=== PATIENT | male | born 1990 | race Caucasian/White ===

== ENCOUNTER 2018-12-02 13:59 | Inpatient (IN) | payer BC ==
[~2018-12-02] VITALS: Ht 180.3 cm; Wt 69.4 kg
--- NOTE | ~2018-12-02 | EKG ---
[place], [place] ELECTROCARDIOGRAM REPORT NAME: KRISTIE SHAY UNIT #: [id number] ROOM: 507 DOCTOR: GO DRAFT REPORT BIRTHDATE: [birth year] [facility] Test Date: 2018-12-02 Test Time: 16:00:56 Pat Name: KRISTIE SHAY Department: Room: [facility] 2 Gender: M Pack Worker: Rosalie Murillo : 1990 Requested By: ARCHIE DING Order Number: [id number] Reading MD: Maikol Snyder MD Measurements Intervals [place] Rate: 59 P: 55 WI: 154 QRS: 71 QRSD: 100 T: 66 QT: 393 QTc: 390 Interpretive Statements Sinus rhythm Probable left atrial enlargement Electronically Signed On 12-03-2018 4:09:00 PST by Maikol Snyder MD CM:EKGRPT:ELECTROCARDIOGRAM REPORT [id number] ARCHIE DING EPIPHANY DRAFT REPORT ARCHIE DING
[~2018-12-02 13:59] MED LIST: ATARAX,VISTARIL50 MG PO; KLONOPIN1 M1 PO; QUETIAPINE FUMA25 MG PO; SUBOXONE 8 MG-1 EACH SL; TRAZODONE50 MG PO
[2018-12-02 15:00] VITALS: BP 117/60
--- NOTE | 2018-12-02 15:00 | NUR ---
A 28, admitted to 5E, under the services of ADILENE Ramos DO with a diagnosis of OPIATE ADDICTION. Chief complaint is OPIATE ADDICTION. Patient arrived via ambulatory from [place]. Monitor applied. Initial assessment completed. Vital signs taken and recorded. ADILENE RAMOS DO notified of admission to the unit. Orders received. See assessment for past medical history, medications and allergies. Patient and/or family oriented to unit. [facility] 5E POLICIES, [place] POLICIES TO STAY ON FLOOR AND NOT SMOKE Clothing/patient valuable form completed. LEONARD JUSTICE
[2018-12-02 16:00] VITALS: BP 117/60
[2018-12-02 16:15] LABS: BILIRUBIN NEGATIVE (NEGATIVE); BLOOD NEGATIVE (NEGATIVE); CLARITY CLEAR (CLEAR); COLOR YELLOW (YELLOW); GLUCOSE NEGATIVE (NEGATIVE); KETONE NEGATIVE (NEGATIVE); LEUKO ESTERASE NEGATIVE (NEGATIVE); NITRITE NEGATIVE (NEGATIVE); SPECIFIC GRAVITY 1.025 (1.005-1.030); UROBILINOGEN 0.2 E.U./dl (0.2-1.0)
--- NOTE | 2018-12-02 16:22 | NUR ---
MEDICATED WITH PO IBUPROFEN, TYLENOL, ROBAXIN, BENTYL, VISTARIL AND REQUIP ORDERED PER PT REQUEST FOR C/O BODY ACHES/CRAMPING, ANXIETY AND RESTLESS LEGS/ARMS.
[2018-12-02 16:23] LABS: URINE AMPHETAMINES < 1000 (1000ng/ml); URINE BARBITURATES < 200 (200ng/ml); URINE BENZODIAZEPINES < 200 (200ng/ml); URINE CANNABINOIDS (THC) > 50 (50ng/ml); URINE COCAINE > 300 (300ng/ml); URINE METHADONE < 300 (300ng/ml); URINE OPIATES > 300 (300ng/ml)
[2018-12-02 16:26] LABS: BACTERIA TRACE; EPITHELIAL CELLS 0-2; WBC 0-2 wbc/hpf (0-5)
[2018-12-02 16:29] LABS: URINE PHENCYCLIDINE < 25 (25ng/ml)
--- NOTE | 2018-12-02 19:21 | NUR ---
Patient resting. Responding to scheduled medications with fewer complaints of pain and anxiety.
[2018-12-02 20:00] VITALS: BP 113/54
--- NOTE | 2018-12-02 20:00 | NUR ---
RESTING IN BED WITH EYES CLOSED. AROUSES EASILY. GAVE PT. NICOTINE GUM. CALL LIGHT WITHIN REACH.
--- NOTE | 2018-12-02 23:41 | NUR ---
MEDICATED WITH BENTLY FOR ABDOMINAL CRAMPS, TRAZODONE FOR SLEEP, VISTARIL FOR ANXIETY & ROBAXIN FOR MUSCLES ACHES. ALSO MEDICATED WITH SUBUTEX STRAIGHT ORDER. PT. VOICES NO C/O. CALL LIGHT WITHIN REACH.
[2018-12-03] VITALS: BP 127/57
--- NOTE | 2018-12-03 02:00 | NUR ---
RESTING IN BED WITH EYES CLOSED. PRN MEDICATIONS GIVEN EARLIER APPARENTLY EFFECTIVE. CALL LIGHT WITHIN REACH.
--- NOTE | 2018-12-03 06:10 | NUR ---
MEDICATED WITH MOTRIN FOR C/O GENERALIZED DISCOMFORT; REQUIP FOR RESTLESS LEGS; VISTARIL FOR ANXIETY & ROBAXIN FOR MUSCLE ACHES. PT. STATES THAT HE SLEPT PRETTY GOOD. VOICES NO OTHER C/O; CALL LIGHT WITHIN REACH.
--- NOTE | 2018-12-03 07:47 | NUR ---
Medicated with po bentyl and tylenol as ordered per pt request for c/o body aches. At 0753 medicated with nicotine gum for the desire to smoke.
[2018-12-03 08:00] VITALS: BP 125/79
--- NOTE | 2018-12-03 08:08 | NUR ---
PATIENT MEETS [facility], CINA=16. PATIENT IS INTERESTED IN FOLLOWING UP WITH [facility] FOR OUTPATIENT COUNSELING. [facility] WILL SCHEDULE THE PATIENT'S INITIAL APPOINTMENT. BLAKE CANELA MS HORSE RACER
--- NOTE | 2018-12-03 10:30 | NUR ---
Patient resting. Responding to scheduled medications with fewer complaints of pain and anxiety.
[2018-12-03 12:00] VITALS: BP 126/72
[2018-12-03 16:00] VITALS: BP 122/56
--- NOTE | 2018-12-03 16:06 | NUR ---
MEDICATED WITH PO BENTYL, TYLENOL, ROBAXIN, MOTRIN, VISTARIL AND NICOTINE GUM ORDERED PER PT REQUEST FOR C/O BODY ACHES, ANXIETY AND THE URGE TO SMOKE.
--- NOTE | 2018-12-03 17:38 | NUR ---
Patient resting. Responding to scheduled medications with fewer complaints of pain and anxiety.
[2018-12-03 20:00] VITALS: BP 125/63
--- NOTE | 2018-12-03 21:23 | NUR ---
MEDICATED WITH PO BENTYL, ROBAXIN, MOTRIN, REQUIP AND VISTARIL ORDERED PER PT REQUEST FOR C/O BODY ACHES, RESTLESS LEGS AND ANXIETY.
--- NOTE | 2018-12-03 23:00 | NUR ---
ASSUMED CARE FOR THIS PT AT THIS TIME. PT C/O "FEELING CRAPPY". PT REMINDED THAT PREVIOUS NURSE HAD ADMINISTERED ALL AVAILABLE PRN MEDS. PT GIVEN GINGERALE PER REQUEST. LIGHTS TURNED OFF AND DOOR CLOSED TO HELP PROMOTE SLEEP. CALL LIGHT IN REACH.
[2018-12-04] VITALS: BP 146/70
--- NOTE | 2018-12-04 02:07 | NUR ---
24 HR chart check completed.
--- NOTE | 2018-12-04 03:03 | NUR ---
Patient sleeping. Respirations relaxed and easy. Siderails up . Wheelmatthews on. MILAN KUMARI
[2018-12-04 08:00] VITALS: BP 125/75
[2018-12-04 12:00] VITALS: BP 123/67
--- NOTE | 2018-12-04 12:40 | NUR ---
PATIENT C/O ACHES ALL OVER, LEG CRAMPS, ANXIETY, NAUSEA. MEDICATED WITH PO PRN ZOFRAN, REQUIP, ROBAXIN, MOTRIN, AND VISTARIL. WILL MONITOR PATIENT FOR MEDICATION EFFECTIVENESS. NICORETTE GUM ALSO PROVIDED AT THIS TIME FOR C/O URGE TO SMOKE. CALL LIGHT WITHIN REACH.
[2018-12-04 16:00] VITALS: BP 117/63
--- NOTE | 2018-12-04 16:18 | NUR ---
PATIENT IS GOING TO FOLLOW UP WITH [facility] IN [place] FOR HIS AFTERCARE PLAN. PATIENT AGREES AND UNDERSTANDS HER AFTERCARE PLAN. DIOGO MATTA B.A. OFFC SPEC
--- NOTE | 2018-12-04 20:46 | NUR ---
Patient signed out AMA. Patient encouraged to stay and advised of possible consequences of premature discharge. Physician DR LEONE and wood boat builder supervisor RITA notified. Patient instructed what to do regarding care post-departure from the hospital; emergency phone numbers provided. Patent was accompanied by UNKNOWN. JERMAINE BOSTON
== END 2018-12-04 20:46 | disposition left against medical advice (07) | DRG 894 ==
LOC: 5E 13:59
PROVIDERS: Registered Nurse; ADMIT Internal Medicine
DX: F11.23 Opioid dependence with withdrawal (principal); F90.9 Attention-deficit hyperactivity disorder, unspecified type; F41.9 Anxiety disorder, unspecified; F14.90 Cocaine use, unspecified, uncomplicated; F32.9 Major depressive disorder, single episode, unspecified; G40.909 Epilepsy, unspecified, not intractable, without status epilepticus; Z81.1 Family history of alcohol abuse and dependence; Z80.3 Family history of malignant neoplasm of breast; Z71.6 Tobacco abuse counseling